=== PATIENT | female | born 1990 | race American Indian/Alaskan Native ===

== ENCOUNTER 2018-08-21 18:02 | Inpatient (IN) | payer MEDICAID ==
[2018-08-21] MEDS ORDERED: TYLENOL PO PRN (18:56)
[2018-08-21] MEDS ORDERED: PHENERGAN PR PRN (18:59)
[2018-08-21] MEDS ORDERED: LACTATED RINGERS 500 ML IV SCH (19:00)
[2018-08-21 19:56] LABS: Basophils % (Auto) 0.4 % (0.0-1.8); Eosinophils % (Auto) 0.2 % (0.0-4.3); Hematocrit 37.4 % (30.3-42.9); Lymphocytes # (Auto) 1.9 K/mm3 (1.2-5.4); Lymphocytes % (Auto) 14.9 % (13.4-35.0); Mean Corpuscular HGB Conc 35 % (30-34); Mean Corpuscular Volume 82 fl (79-97); Monocytes # (Auto) 0.8 K/mm3 (0.0-0.8); Monocytes % (Auto) 6.1 % (0.0-7.3); Platelet Count 394 K/mm3 (140-440); Red Blood Count 4.55 M/mm3 (3.65-5.03); Red Cell Distribution Width 13.5 % (13.2-15.2)
[2018-08-21 20:13] LABS: BUN/Creatinine Ratio 8; Blood Urea Nitrogen 3 mg/dL (7-17); Calcium 9.1 mg/dL (8.4-10.2); Hemolysis Index 3
[2018-08-21 21:16] LABS: Bilirubin,Urine NEG (Negative); Blood,Urine NEG (Negative); Color,Urine Amber (Yellow); Mucus,Urine 2+ /HPF
[2018-08-21] MEDS ORDERED: AMBIEN PO PRN (22:00)
[2018-08-21] MEDS: ZOFRAN IV PRN (22:02)
[2018-08-21] MEDS: LACTATED RINGERS 1,000 ML IV SCH (22:09)
[2018-08-22] MEDS: LACTATED RINGERS 1,000 ML IV SCH ×3 (02:24→18:06)
[2018-08-22] MEDS: ZOFRAN IV PRN (08:07)
[2018-08-22] MEDS ORDERED: TYLENOL PO PRN (17:13)
[2018-08-22] MEDS ORDERED: COLACE PO PRN (17:13)
[2018-08-22] MEDS ORDERED: SUDAFED PO PRN (17:13)
--- NOTE | 2018-08-22 17:48 | History and Physical Report ---
History of Present Illness Date of examination: 08/22/18 Date of admission: 08/21/18 18:16 Chief complaint: I can't keep anything down. History of present illness: Pt is a 28 year old who presents for hyperemesis. Medications and Allergies Allergies Allergy/AdvReac Type Severity Reaction Status Date / Time No Known Allergies Allergy Unverified 08/21/18 18:46 Home Medications Medication Instructions Recorded Confirmed Last Taken Type No Known Home Medications [No 08/22/18 08/22/18 Unknown History Reported Home Medications] Active Meds: Active Medications Acetaminophen (Tylenol) 650 mg PO Q6H PRN PRN Reason: Pain, Mild (1-3) Docusate Sodium (Colace) 100 mg PO Q12H PRN PRN Reason: Constipation Lactated Ringer's (Lactated Ringers) 1,000 mls @ 125 mls/hr IV DIRECT COREY Last Admin: 08/22/18 09:49 Dose: 125 mls/hr Documented by: Lactated Ringer's (Lactated Ringers) 500 mls @ 999 mls/hr IV DIRECT COREY Metoclopramide HCl (Reglan) 10 mg IV Q6H PRN PRN Reason: Nausea And Vomiting Multivitamins/Iron/Calcium ( Vitamin) 1 each PO QDAY COREY Ondansetron HCl (Zofran) 4 mg IV Q6H PRN PRN Reason: Nausea And Vomiting Last Admin: 08/22/18 08:07 Dose: 4 mg Documented by: Promethazine HCl (Phenergan) 25 mg DE Q6H PRN PRN Reason: Nausea And Vomiting Pseudoephedrine HCl (Sudafed) 30 mg PO Q4H PRN PRN Reason: Nasal Congestion Simethicone (Mylicon) 80 mg PO Q6H PRN PRN Reason: Gas pain Zolpidem Tartrate (Ambien) 10 mg PO QHS PRN PRN Reason: Insomnia - Vital Signs Vital signs: Vital Signs Temp Pulse Resp BP Pulse Ox 99.1 F 98 H 16 120/75 100 08/21/18 18:32 08/21/18 18:32 08/21/18 18:32 08/21/18 18:32 08/21/18 18:32 Temp Pulse Resp BP Pulse Ox 98.2 F 91 H 16 103/60 99 08/22/18 15:19 08/22/18 15:19 08/22/18 15:19 08/22/18 15:19 08/22/18 15:19 Results Result Diagrams: 08/21/18 19:35 08/21/18 19:35 Abnormal lab results 08/21/18 08/21/18 08/21/18 Range/Units 19:35 19:35 Unknown WBC 12.8 H (4.5-11.0) K/mm3 MCHC 35 H (30-34) % Seg Neutrophils % 78.4 H (40.0-70.0) % Seg Neutrophils # 10.0 H (1.8-7.7) K/mm3 Sodium 136 L (137-145) mmol/L Potassium 3.4 L (3.6-5.0) mmol/L Carbon Dioxide 20 L (22-30) mmol/L BUN 3 L (7-17) mg/dL Creatinine 0.4 L (0.7-1.2) mg/dL Urine WBC (Auto) 7.0 H (0.0-6.0) /HPF All other labs normal.
[2018-08-23] MEDS: LACTATED RINGERS 1,000 ML IV SCH ×4 (01:26→23:02)
[2018-08-23] MEDS: REGLAN IV PRN ×2 (07:08→17:30)
[2018-08-23] MEDS: PRENATAL VITAMIN PO SCH (11:21)
[2018-08-23] MEDS ORDERED: ceFAZolin 1 GM in NACL 0.9% 100 ML IV SCH (12:00)
[2018-08-23] MEDS: ANCEF/NS 1 GM/50 ML 1 GM/50 ML BAG IV SCH ×2 (12:30→20:55)
[2018-08-23] MEDS: MYLICON PO PRN (21:04)
[2018-08-24] MEDS: LACTATED RINGERS 1,000 ML IV SCH ×2 (05:35→14:10)
[2018-08-24] MEDS: REGLAN IV PRN (07:50)
--- NOTE | 2018-08-24 11:35 | Progress Note ---
Assessment and Plan HD 2 for this patient with hyperemesis. Pt is mildly improving. Continue to advance diet and treat for nausea and vomiting. Subjective - Subjective Date of service: 08/24/18 Interval history: Pt is a 28 year old who presents for hyperemesis. Patient reports: other (feeling better and able to keep some liquids down) Objective - Vital Signs Vital Signs: Vital Signs - 12hr 08/24/18 08/24/18 08/24/18 00:45 05:00 06:58 Temperature 98.5 F 98.5 F 98.5 F Pulse Rate 87 86 86 Respiratory 20 20 20 Rate Blood Pressure 91/46 Blood Pressure 90/50 91/46 [Left] O2 Sat by Pulse 97 98 98 Oximetry 08/24/18 08:31 Temperature 99.1 F Pulse Rate 85 Respiratory 18 Rate Blood Pressure 102/58 Blood Pressure [Left] O2 Sat by Pulse 97 Oximetry - Exam Cardiovascular: Regular rate, Normal S1, Normal S2 Lungs: Clear to auscultation, Normal air movement Abdomen: Present: normal appearance, soft - Labs Labs: Abnormal Labs 08/21/18 08/21/18 08/21/18 19:35 19:35 Unknown WBC 12.8 H MCHC 35 H Seg Neutrophils % 78.4 H Seg Neutrophils # 10.0 H Sodium 136 L Potassium 3.4 L Carbon Dioxide 20 L BUN 3 L Creatinine 0.4 L Urine WBC (Auto) 7.0 H Laboratory Results - last 24 hr 08/24/18 01:35 Urine Ketones 80
[2018-08-24] MEDS: REGLAN PO PRN (18:01)
[2018-08-24] MEDS: MYLICON PO PRN (22:34)
[2018-08-25] MEDS: LACTATED RINGERS 1,000 ML IV SCH (00:38)
[2018-08-25] MEDS: REGLAN PO PRN ×2 (00:39→08:33)
[2018-08-25] MEDS: PRENATAL VITAMIN PO SCH (09:13)
[2018-08-25 12:36] VITALS: BP 104/61
--- NOTE | 2018-08-25 14:29 | Progress Note ---
Assessment and Plan IUP at 13 weeks for hyperemesis. Patient doing better on po nausea meds. Able to be discharged on today. Subjective - Subjective Date of service: 08/25/18 Interval history: Pt is a 28 year old who presents for hyperemesis. Patient reports: new complaints, other (feeling better and able to keep food down with PO meds) Objective - Vital Signs Vital Signs: Vital Signs - 12hr 08/25/18 08/25/18 08/25/18 02:57 05:15 06:51 Temperature 98.5 F 98.3 F 98.3 F Pulse Rate 98 H 85 85 Respiratory 20 20 20 Rate Respiratory Rate [Abdomen] Blood Pressure 95/51 96/50 Blood Pressure 96/50 [Left] O2 Sat by Pulse 98 96 96 Oximetry 08/25/18 08/25/18 08/25/18 08:00 08:05 11:46 Temperature 98.6 F 98.6 F Pulse Rate 88 95 H Respiratory 18 18 Rate Respiratory 19 Rate [Abdomen] Blood Pressure 98/46 104/61 Blood Pressure [Left] O2 Sat by Pulse 96 97 Oximetry - Exam Breasts: deferred Cardiovascular: Regular rate, Normal S1, Normal S2 Lungs: Clear to auscultation, Normal air movement Uterus: Present: normal - Labs Labs: Abnormal Labs 08/21/18 08/21/18 08/21/18 19:35 19:35 Unknown WBC 12.8 H MCHC 35 H Seg Neutrophils % 78.4 H Seg Neutrophils # 10.0 H Sodium 136 L Potassium 3.4 L Carbon Dioxide 20 L BUN 3 L Creatinine 0.4 L Urine WBC (Auto) 7.0 H
--- NOTE | 2018-08-25 14:31 | Discharge Summary ---
Providers - Providers Date of Admission: 08/21/18 18:16 Date of discharge: 08/25/18 Attending physician: NIOT MELENDREZ 08/22/18 Consult to Case Management [CONS] Routine Services Needed at Discharge: Other Notified:: yes Phone number called:: [phone] Was contact made?: Yes If yes, spoke with:: dennys 08/22/18 17:13 Consult to Dietitian/Nutrition [CONS] Routine Physician Instructions: Reason For Exam: Reason for Consult: dehydration Primary care physician: NITO MELENDREZ Hospitalization Reason for admission: other (hyperemesis) Discharge diagnosis: other (hyperemesis) Hospital course: Unremarkable with continued improvement Condition at discharge: Good Disposition: [id number] TO HOME OR SELFCARE Plan - Provider Discharge Summary Activity: routine, no sex for 6 weeks, no heavy lifting 4 weeks, no strenuous exercise Diet: routine Instructions: other (patient to call office with pharmacy information so that script can be called in.) Additional instructions: [] Smoking cessation referral if applicable(refer to patient education folder for contact #) [] Refer to [facility]'s [facility] Booklet Call your doctor immediately for: * Fever > 100.5 * Heavy vaginal bleeding ( >1 pad per hour) * Severe persistent headache * Shortness of breath * Reddened, hot, painful area to leg or breast * Drainage or odor from incision. * Keep incision clean and dry at all times and follow doctor's instructions regarding bathing/showering - Follow up plan Follow up: NITO MELENDREZ MD [Primary Care Provider] - 7 Days Forms: [facility] Discharge Summary, Discharge Signature Page
== END 2018-08-25 03:50 | disposition home or self-care (01) | DRG 781 ==
LOC: OB 18:02 → UNDOADMIN 18:02 → OB 18:16
PROVIDERS: ADMIT Obstetrics & Gynecology; ATTEND Obstetrics & Gynecology
DX: O21.0 Mild hyperemesis gravidarum (principal); Z3A.13 13 weeks gestation of pregnancy
CPT/HCPCS: 36415; 80048; 81001; 82010; 85025; G0378; J0690; J2405; J2765; J7120